=== PATIENT | female | born 1930 | race Caucasian/White ===

== ENCOUNTER 2018-09-25 11:34 | Inpatient (IN) ==
--- NOTE | 2018-09-25 11:56 | ED ---
HPI General Chief complaint: Neuro Symptoms/Deficit Stated complaint: Neuro Time Seen by Provider: 09/25/18 11:42 Source: patient and family Mode of arrival: ambulatory Limitations: no limitations History of Present Illness HPI narrative: 88-year-old female last night was complained to her family about a headache around her right eye. This morning she was supposed to go get her hair done and when she did not show up her son went to check on her and found her in the driveway on her knees having difficulty getting up. They did not find any madrid on her and when they helped get her up she was not complaining of anything specific. When they went inside they found that she still had water running which is not like her. They state that she has used inhalers intermittently but they do not know that she has any specific lung issues. Patient denies active complaints currently but is a poor historian. Related Data Home Medications Medication Instructions Recorded Confirmed amlodipine 5 mg PO DAILY 09/25/18 09/25/18 ezetimibe 10 mg PO DAILY 09/25/18 09/25/18 furosemide 20 mg PO DAILY 09/25/18 09/25/18 levothyroxine 100 mcg PO DAILY 09/25/18 09/25/18 lisinopril 10 mg PO DAILY 09/25/18 09/25/18 losartan 100 mg PO DAILY 09/25/18 09/25/18 metoprolol succinate 50 mg PO DAILY 09/25/18 09/25/18 oxybutynin chloride 5 mg PO TID 09/25/18 09/25/18 ranitidine HCl 150 mg PO DAILY 09/25/18 09/25/18 Allergies Allergy/AdvReac Type Severity Reaction Status Date / Time No Known Allergies Allergy Unknown Uncoded 05/09/13 11:34 Review of Systems ROS: all other systems reviewed are negative [facility] Medical History Medical History Hypertension (Acute) Social History Social History Substance History: No History of Abuse Second Hand Smoke Exposure: No Smoking Status: Never smoker How Often Do You Have a Drink Containing Alcohol: 2 to 4 times a month Recent Travel in [facility] within the Last 8 Weeks: No Recent Out of Country Travel within the Last 8 Weeks: No Immunization History Tetanus Immunization: Unsure Exam Narrative Exam Narrative: GENERAL: 88 y/o female in no apparent distress SKIN: Focused skin assessment warm/dry. HEAD: Atraumatic. Normocephalic. EYES: Pupils equal and round. No scleral icterus. No injection or drainage. ENT: No nasal bleeding or discharge. Mucous membranes pink and moist. NECK: Trachea midline. CARDIOVASCULAR: Regular rate and rhythm. RESPIRATORY: No accessory muscle use. Clear to auscultation. Breath sounds equal bilaterally. GASTROINTESTINAL: Abdomen soft, non-tender, nondistended. MUSCULOSKELETAL: No obvious deformities. No clubbing. No cyanosis. NEUROLOGICAL: Awake. Motor grossly within normal limits. Normal speech. No pronator drift, no facial droop, equal creative writer strength bilaterally Course Reevaluation(s) Reevaluation #1: Patient and family updated, given Lasix, agrees to admission Consultations Consultation #1: dr villalta agrees to admit Initial Documented Vital Signs Temperature 97.8 F 09/25/18 11:36 Pulse Rate 68 09/25/18 11:36 Respiratory Rate 15 09/25/18 11:36 Blood Pressure 156/73 H 09/25/18 11:36 Pulse Oximetry 88 L 09/25/18 11:36 Last Documented Vital Signs Temperature 97.8 F 09/25/18 11:36 Pulse Rate 60 09/25/18 15:21 Respiratory Rate 18 09/25/18 15:21 Blood Pressure 178/74 H 09/25/18 15:21 Pulse Oximetry 95 09/25/18 15:21 Medical Decision Making [facility] Narrative Medical decision making narrative: Will check blood work, imaging and reevaluate Medical Screen Exam Complete: Yes Emergency Medical Condition: Yes Differential Diagnosis Differential Diagnosis: PE, pneumonia, pneumothorax, COPD, anemia, renal failure Lab Data Lab results reviewed: Yes I reviewed the patient's lab results. Result diagrams: 09/25/18 11:52 09/25/18 11:52 Lab Results 09/25/18 09/25/18 09/25/18 Range/Units 11:47 11:52 11:52 WBC 8.5 (4.0-11.0) th/mm3 RBC 4.96 (4.00-5.30) mil/mm3 Hgb 15.4 H (11.6-15.3) gm/dL Hct 45.0 (35.0-46.0) % MCV 90.7 (80.0-100.0) fL MCH 31.0 (27.0-34.0) pg MCHC 34.2 (32.0-36.0) % RDW 15.2 (11.6-17.2) % Plt Count 291 (150-450) th/mm3 MPV 7.9 (7.0-11.0) fL Neut % (Auto) 76.7 H (16.0-70.0) % Lymph % (Auto) 15.7 (9.0-44.0) % Coal % (Auto) 6.3 (0.0-8.0) % Eos % (Auto) 0.9 (0.0-4.0) % Baso % (Auto) 0.4 (0.0-2.0) % Neut # (Auto) 6.5 (1.8-7.7) th/mm3 Lymph # (Auto) 1.3 (1.0-4.8) th/mm3 Coal # (Auto) 0.5 (0.0-0.9) th/mm3 Eos # (Auto) 0.1 (0.0-0.4) th/mm3 Baso # (Auto) 0.0 (0.0-0.2) th/mm3 WBC Differential . Differential Comment Auto diff final PT (9.8-11.6) sec INR Ratio APTT (23.4-31.7) sec Sodium 134 L (136-145) meq/L Potassium 3.4 L (3.5-5.1) meq/L Chloride 99 (98-107) meq/L Carbon Dioxide 22.6 (21.0-32.0) meq/L Anion Gap 12 (5-15) meq/L BUN 20 H (7-18) mg/dL Creatinine 1.32 H (0.50-1.00) mg/dL Estimated GFR 38 L (>89) mL/min POC Glucose 130 H (68-110) mg/dl Random Glucose 124 H (74-106) mg/dL Calcium 9.5 (8.5-10.1) mg/dL Magnesium (1.5-2.5) mg/dL Total Bilirubin 2.1 H (0.2-1.0) mg/dL AST 18 (15-37) U/L ALT 23 (10-53) U/L Alkaline Phosphatase 100 (45-117) U/L Total Creatine Kinase 76 (26-192) U/L Troponin I Less than 0.02 L (0.02-0.05) ng/mL B-Natriuretic Peptide (0-100) pg/mL Total Protein 9.7 H (6.4-8.2) g/dL Albumin 3.8 (3.4-5.0) g/dL Urine Color (Yellw/Straw) Urine Clarity (Clear) Urine pH (5.0-8.5) Ur Specific [place] (1.002-1.035) Urine Protein (Neg-Trace) mg/dL Urine Glucose (UA) (Negative) mg/dL Urine Ketones (Negative) mg/dL Urine Occult Blood (Negative) Urine Nitrate (Negative) Urine Bilirubin (Negative) Urine Urobilinogen (Less than 2) mg/dL Ur Leukocyte Esterase (Negative) Urine RBC (0-3) /hpf Urine WBC (0-5) /hpf Hyaline Casts (0-3) /lpf Urine Mucus (Occasional) /lpf Micro UA Comment Ur Microscopic Review Urine Culture Comments 09/25/18 09/25/18 09/25/18 Range/Units 11:52 11:52 11:52 WBC (4.0-11.0) th/mm3 RBC (4.00-5.30) mil/mm3 Hgb (11.6-15.3) gm/dL Hct (35.0-46.0) % MCV (80.0-100.0) fL MCH (27.0-34.0) pg MCHC (32.0-36.0) % RDW (11.6-17.2) % Plt Count (150-450) th/mm3 MPV (7.0-11.0) fL Neut % (Auto) (16.0-70.0) % Lymph % (Auto) (9.0-44.0) % Coal % (Auto) (0.0-8.0) % Eos % (Auto) (0.0-4.0) % Baso % (Auto) (0.0-2.0) % Neut # (Auto) (1.8-7.7) th/mm3 Lymph # (Auto) (1.0-4.8) th/mm3 Coal # (Auto) (0.0-0.9) th/mm3 Eos # (Auto) (0.0-0.4) th/mm3 Baso # (Auto) (0.0-0.2) th/mm3 WBC Differential Differential Comment PT 10.4 (9.8-11.6) sec INR 1.0 Ratio APTT 31.4 (23.4-31.7) sec Sodium (136-145) meq/L Potassium (3.5-5.1) meq/L Chloride (98-107) meq/L Carbon Dioxide (21.0-32.0) meq/L Anion Gap (5-15) meq/L BUN (7-18) mg/dL Creatinine (0.50-1.00) mg/dL Estimated GFR (>89) mL/min POC Glucose (68-110) mg/dl Random Glucose (74-106) mg/dL Calcium (8.5-10.1) mg/dL Magnesium 2.3 (1.5-2.5) mg/dL Total Bilirubin (0.2-1.0) mg/dL AST (15-37) U/L ALT (10-53) U/L Alkaline Phosphatase (45-117) U/L Total Creatine Kinase (26-192) U/L Troponin I (0.02-0.05) ng/mL B-Natriuretic Peptide 425 H (0-100) pg/mL Total Protein (6.4-8.2) g/dL Albumin (3.4-5.0) g/dL Urine Color (Yellw/Straw) Urine Clarity (Clear) Urine pH (5.0-8.5) Ur Specific [place] (1.002-1.035) Urine Protein (Neg-Trace) mg/dL Urine Glucose (UA) (Negative) mg/dL Urine Ketones (Negative) mg/dL Urine Occult Blood (Negative) Urine Nitrate (Negative) Urine Bilirubin (Negative) Urine Urobilinogen (Less than 2) mg/dL Ur Leukocyte Esterase (Negative) Urine RBC (0-3) /hpf Urine WBC (0-5) /hpf Hyaline Casts (0-3) /lpf Urine Mucus (Occasional) /lpf Micro UA Comment Ur Microscopic Review Urine Culture Comments 09/25/18 Range/Units 12:19 WBC (4.0-11.0) th/mm3 RBC (4.00-5.30) mil/mm3 Hgb (11.6-15.3) gm/dL Hct (35.0-46.0) % MCV (80.0-100.0) fL MCH (27.0-34.0) pg MCHC (32.0-36.0) % RDW (11.6-17.2) % Plt Count (150-450) th/mm3 MPV (7.0-11.0) fL Neut % (Auto) (16.0-70.0) % Lymph % (Auto) (9.0-44.0) % Coal % (Auto) (0.0-8.0) % Eos % (Auto) (0.0-4.0) % Baso % (Auto) (0.0-2.0) % Neut # (Auto) (1.8-7.7) th/mm3 Lymph # (Auto) (1.0-4.8) th/mm3 Coal # (Auto) (0.0-0.9) th/mm3 Eos # (Auto) (0.0-0.4) th/mm3 Baso # (Auto) (0.0-0.2) th/mm3 WBC Differential Differential Comment PT (9.8-11.6) sec INR Ratio APTT (23.4-31.7) sec Sodium (136-145) meq/L Potassium (3.5-5.1) meq/L Chloride (98-107) meq/L Carbon Dioxide (21.0-32.0) meq/L Anion Gap (5-15) meq/L BUN (7-18) mg/dL Creatinine (0.50-1.00) mg/dL Estimated GFR (>89) mL/min POC Glucose (68-110) mg/dl Random Glucose (74-106) mg/dL Calcium (8.5-10.1) mg/dL Magnesium (1.5-2.5) mg/dL Total Bilirubin (0.2-1.0) mg/dL AST (15-37) U/L ALT (10-53) U/L Alkaline Phosphatase (45-117) U/L Total Creatine Kinase (26-192) U/L Troponin I (0.02-0.05) ng/mL B-Natriuretic Peptide (0-100) pg/mL Total Protein (6.4-8.2) g/dL Albumin (3.4-5.0) g/dL Urine Color Yellow (Yellw/Straw) Urine Clarity Hazy H (Clear) Urine pH 5.0 (5.0-8.5) Ur Specific [place] 1.018 (1.002-1.035) Urine Protein 100 H (Neg-Trace) mg/dL Urine Glucose (UA) Negative (Negative) mg/dL Urine Ketones Negative (Negative) mg/dL Urine Occult Blood Negative (Negative) Urine Nitrate Negative (Negative) Urine Bilirubin Negative (Negative) Urine Urobilinogen Less than 2 (Less than 2) mg/dL Ur Leukocyte Esterase Negative (Negative) Urine RBC Less than 1 (0-3) /hpf Urine WBC 1 (0-5) /hpf Hyaline Casts 14 (0-3) /lpf Urine Mucus Few H (Occasional) /lpf Micro UA Comment Culture not ind Ur Microscopic Review Not Reportable Urine Culture Comments Culture not ind Imaging Data Attestation: I personally reviewed and interpreted this imaging study as follows : Radiologist's impression: Chest X-Ray 09/25/18 11:50 CONCLUSION: Mild failure. Head CT 09/25/18 11:50 CONCLUSION: 1. No acute intracranial abnormality demonstrated. 2. Chronic white matter changes. . Chest CTA 09/25/18 11:51 CONCLUSION: 1. No pulmonary embolus. 2. CT findings suggests mild congestive heart failure in the proper clinical setting. Also probably some tricuspid regurgitation. 3. Coronary artery calcification. 4. Upper limits of normal to mildly enlarged mediastinal and hilar lymph nodes are slightly more prominent than in November,. Discharge Plan Discharge Disposition Patient Disposition: 30 Still Patient Discharge Details Diagnosis: Hypoxia, CHF (congestive heart failure) Physicians Team ED Provider: Tawnya Jefferson Primary Care Provider: Victorino Gay Attending Provider: Jose Villalta Discharge Interventions Interventions: Vital Signs Last Done: 09/25/18 15:21 Status ED Status: Admitted Observation Patient
[2018-09-25 12:15] LABS: Baso % (Auto) 0.4 % (0.0-2.0); Eos # (Auto) 0.1 th/mm3 (0.0-0.4); Eos % (Auto) 0.9 % (0.0-4.0); Hemoglobin 15.4 gm/dL (11.6-15.3); Lymph # (Auto) 1.3 th/mm3 (1.0-4.8); Lymph % (Auto) 15.7 % (9.0-44.0); Mean Corpuscular HGB Conc 34.2 % (32.0-36.0); Mean Corpuscular Volume 90.7 fL (80.0-100.0); Mean Platelet Volume 7.9 fL (7.0-11.0); Mono # (Auto) 0.5 th/mm3 (0.0-0.9); Mono % (Auto) 6.3 % (0.0-8.0); Neut # (Auto) 6.5 th/mm3 (1.8-7.7); Neut % (Auto) 76.7 % (16.0-70.0); Platelet Count 291 th/mm3 (150-450); Red Blood Count 4.96 mil/mm3 (4.00-5.30); Red Cell Distribution Width 15.2 % (11.6-17.2); White Blood Count 8.5 th/mm3 (4.0-11.0)
[2018-09-25 12:24] LABS: Activated Partial Thrombo Time 31.4 sec (23.4-31.7); Prothrombin Time 10.4 sec (9.8-11.6)
[2018-09-25 12:31] LABS: Bilirubin,Urine Negative (Negative); Clarity,Urine Hazy (Clear); Color,Urine Yellow (Yellw/Straw); Glucose,Urine (UA) Negative (Negative); Hyaline Casts,Urine 14 /lpf (0-3); Leukocyte Esterase,Urine Negative (Negative); Mucus,Urine Few /lpf (Occasional); Nitrite,Urine Negative (Negative); Specific Gravity,Urine 1.018 (1.002-1.035)
--- NOTE | 2018-09-25 12:35 | XR ---
EXAM DATE: 09/25/2018 12:32 PM EST AGE/SEX: 88 years / Female INDICATIONS: Short of breath. CLINICAL DATA: This is the patient's initial encounter. Patient reports that signs and symptoms have been present for 1 day and indicates a pain score of 6/10. MEDICAL/SURGICAL HISTORY: None. None. COMPARISON: . FINDINGS: Basilar predominant bilateral infiltrates are present with probable small pleural effusions. There is mild cardiomegaly. No pneumothorax. Old granulomatous findings are again noted. CONCLUSION: Mild failure. Electronically signed by: Reji Osullivan MD 09/25/2018 12:34 PM EST
[2018-09-25 12:39] LABS: Alanine Aminotransferase 23 U/L (10-53); Albumin 3.8 g/dL (3.4-5.0); Anion Gap 12 meq/L (5-15); Aspartate Aminotransferase 18 U/L (15-37); Blood Urea Nitrogen 20 mg/dL (7-18); Calcium 9.5 mg/dL (8.5-10.1); Carbon Dioxide 22.6 meq/L (21.0-32.0); Chloride 99 meq/L (98-107); Glomerular Filtration Rate 38 mL/min (>89); Glucose,Random 124 mg/dL (74-106); Potassium 3.4 meq/L (3.5-5.1); Sodium 134 meq/L (136-145)
[2018-09-25 12:42] LABS: Alkaline Phosphatase 100 U/L (45-117); Total Protein 9.7 g/dL (6.4-8.2)
[2018-09-25 12:51] LABS: Creatine Kinase 76 U/L (26-192)
--- NOTE | 2018-09-25 14:18 | ECG ---
Date Performed: 09/25/2018 Time Performed: 11:53:06 PTAGE: 88 years EKG: Sinus rhythm PROLONGED QT INTERVAL ABNORMAL ECG No significant change from prior electrocardiogram. PREVIOUS TRACING : 09/08/2005 12.32 DOCTOR: Jono Lisa Interpretating Date/Time 09/25/2018 14:17:29
--- NOTE | 2018-09-25 16:18 | CT ---
EXAM DATE: 09/25/2018 3:56 PM EST AGE/SEX: 88 years / Female INDICATIONS: Altered mental status. CLINICAL DATA: This is the patient's initial encounter. Patient reports that signs and symptoms have been present for 1 day and indicates a pain score of 0/10. MEDICAL/SURGICAL HISTORY: Hypertension. None. RADIATION DOSE: 56.77 CTDI (mGy) COMPARISON: No prior exams available for comparison. TECHNIQUE: CT of the head without contrast. Using automated exposure control and adjustment of the mA and/or kV according to patient size, radiation dose was kept as low as reasonably achievable to ob tain optimal diagnostic quality images. DICOM format image data is available electronically for revi ew and comparison. FINDINGS: Cerebrum: The ventricles are normal for age. No evidence of midline shift, mass lesion, hemorrhage or acute infarction. No extraaxial fluid collections are seen. There is chronic appearing low-attenu ation in the periventricular white matter Posterior Fossa: The cerebellum and brainstem are intact. The 4th ventricle is midline. The cerebe llopontine angle is unremarkable. Extracranial: The visualized portion of the orbits is intact. Skull: The calvaria is intact. No evidence of skull fracture. CONCLUSION: 1. No acute intracranial abnormality demonstrated. 2. Chronic white matter changes. . Electronically signed by: Reji Osullivan MD 09/25/2018 4:16 PM EST
--- NOTE | 2018-09-25 16:24 | CT ---
EXAM DATE: 09/25/2018 4:00 PM EST AGE/SEX: 88 years / Female INDICATIONS: Shortness of breath. CLINICAL DATA: This is the patient's initial encounter. Patient reports that signs and symptoms have been present for 1 day and indicates a pain score of 0/10. MEDICAL/SURGICAL HISTORY: Hypertension. None. RADIATION DOSE: 10.49 CTDI (mGy) COMPARISON: POI, CT CHEST W/O CONTRAST, 12/09/2017. . TECHNIQUE: Volumetric scanning was performed using a multi-row detector CT scanner during bolus infu vika of 50 ml Visipaque 320 (iodixanol) nonionic water-soluble contrast as a single exam dose. The d simon was post processed with a variety of visualization algorithms including full volume maximum inten sity projection and sliding thin slab reformation. Using automated exposure control and adjustment o f the mA and/or kV according to patient size, radiation dose was kept as low as reasonably achievable to obtain optimal diagnostic quality images. DICOM format image data is available electronically fo r review and comparison. FINDINGS: No pulmonary embolus. Mild cardiomegaly present, mostly left ventricular and left atrial enlargement. Coronary artery calcification present. Intravenous contrast partially refluxes down the IVC and into the hepatic veins. Mild diffuse thickening of the interlobular septi groundglass alveolar opacities of both lungs. There are tiny bilateral effusions. No pneumothorax. There is a small hiatal hernia. Mediastinal lymph nodes are present measuring up to 18 mm in size and slightly more prominent in the interim. There are multiple bilateral hilar lymph nodes that measure up to 1 cm in size that also viktoriya ear more conspicuous. Small calcified the central and right hilar lymph nodes and a subpleural calcified granuloma of the r ight lower lobe are again noted. CONCLUSION: 1. No pulmonary embolus. 2. CT findings suggests mild congestive heart failure in the proper clinical setting. Also probably some tricuspid regurgitation. 3. Coronary artery calcification. 4. Upper limits of normal to mildly enlarged mediastinal and hilar lymph nodes are slightly more pro minent than in November,. Electronically signed by: Reji Osullivan MD 09/25/2018 4:22 PM EST
[2018-09-25] MEDS ORDERED: Acetaminophen 325 MG Tablet PO PRN (16:37)
--- NOTE | 2018-09-25 16:45 | P.HPIM ---
History of Present Illness Primary Care Physician: Victorino Gay MD Chief Complaint: Patient found confused and brought in by family History of Present Illness: This is a 88 year old female patient with a past medical history which includes HTN, hyperlipidemia, GERD, CKD stage 3 and hypothyroidism. Patient was brought to the ER today after she did not show up to her hair appointment. When her son went to check on her he found her in the driveway on her knees having difficulty getting up. Family present also report that the patient had her cloths on backward and had left the water running in her house. They did not find any madrid on her and when they helped get her up she was not complaining of anything specific. Patient denies active complaints currently but is a poor historian. Family at bedside reports that patient is usually very sharp and does not have any confusion or memory problems Per ER MD pulse oxygen saturation was in the 80s on arrival to the ER. Patient denies chest pain, N/V/D/C, fevers, chills or dysuria. Patient did recently start oxybutynin for urinary leakage CXR Mild failure BNP 425 PMH: HTN, hyperlipidemia, GERD, CKD stage 3 and hypothyroidism PSxH: polypectomy appendectomy liver bx R eye cataract Sx colonoscopy FMH: reviewed and noncontributory Social history: retired ETOH use occasionally denies tobacco use now or in the past Medications and Allergies Allergies Allergy/AdvReac Type Severity Reaction Status Date / Time No Known Allergies Allergy Unknown Uncoded 05/09/13 11:34 Home Medications Medication Instructions Recorded Confirmed Type amlodipine 5 mg PO DAILY 09/25/18 09/25/18 History ezetimibe 10 mg PO DAILY 09/25/18 09/25/18 History furosemide 20 mg PO DAILY 09/25/18 09/25/18 History levothyroxine 100 mcg PO DAILY 09/25/18 09/25/18 History losartan 100 mg PO DAILY 09/25/18 09/25/18 History metoprolol tartrate 50 mg PO BID 09/25/18 09/25/18 History oxybutynin chloride 5 mg PO DAILY 09/25/18 09/25/18 History ranitidine HCl 150 mg PO DAILY 09/25/18 09/25/18 History Active Medications: Active Medications Acetaminophen (Tylenol) 650 mg PO Q4H PRN PRN Reason: Temp > 100.4 Al Hydroxide/Mg Hydroxide (Milk Of Baudilio Dyson) 30 ml PO Q12H PRN PRN Reason: Mild Constipation Furosemide (Lasix Inj) 20 mg IV.PUSH BID@0900,1800 OLYA Ondansetron HCl (Zofran Inj) 4 mg IV.PUSH Q6H PRN PRN Reason: NAUSEA OR VOMITING Senna/Docusate Sodium (Olivia-Colace) 1 tab PO BID [facility] Physical Exam Vital signs: Last Vital Signs Temp 97.8 F 09/25/18 11:36 Pulse 60 09/25/18 15:21 Resp 18 09/25/18 15:21 BP 178/74 H 09/25/18 15:21 Pulse Ox 95 09/25/18 15:21 Narrative: GENERAL: This is a well-nourished, well-developed patient, in no apparent distress. CARDIOVASCULAR: Regular rate and rhythm RESPIRATORY: Diminished bilateral bases GASTROINTESTINAL: Abdomen soft, non-tender, nondistended. Normal active bowel sounds MUSCULOSKELETAL: Extremities without clubbing, cyanosis, or edema. NEURO: Alert & Oriented, poor historian. Moves all ext x4 equally Results Labs CBC & Chem 7: 09/25/18 11:52 09/25/18 11:52 Caprini VTE Risk Assessment Caprini VTE Risk Assessment: Moderate/High Risk (score >= 2) Caprini Risk Assessment Model: Point Value = 1 Point Value = 2 Point Value = 3 Point Value = 5 Age 41-60 Minor surgery BMI > 25 kg/m2 Swollen legs Varicose veins or History of unexplained or recurrent spontaneous Oral contraceptives or hormone replacement Sepsis (< 1 month) Serious lung disease, including pneumonia (< 1 month) Abnormal pulmonary function Acute myocardial infarction Congestive heart failure (< 1 month) History of inflammatory bowel disease Medical patient at bed rest Age 61-74 Arthroscopic surgery Major open surgery (> 45 min) Laparoscopic surgery (> 45 min) Malignancy Confined to bed (> 72 hours) Immobilizing plaster cast Central venous access Age >= 75 History of VTE Family history of VTE Factor V Leiden Prothrombin [id number] Lupus anticoagulant Anticardiolipin antibodies Elevated serum homocysteine Heparin-induced thrombocytopenia Other congenital or acquired thrombophilia Stroke (< 1 month) Elective arthroplasty Hip, pelvis, or leg fracture Acute spinal cord injury (< 1 month) Prophylaxis Regimen: Total Risk Factor Score Risk Level Prophylaxis Regimen 0-1 Low Early ambulation 2 Moderate Order ONE of the following: *Sequential Compression Device (SCD) *Heparin 5000 units SQ BID 3-4 Higher Order ONE of the following medications: *Heparin 5000 units SQ TID *Enoxaparin/Lovenox 40 mg SQ daily (WT < 150 kg, CrCl > 30 mL/min) *Enoxaparin/Lovenox 30 mg SQ daily (WT < 150 kg, CrCl > 10-29 mL/min) *Enoxaparin/Lovenox 30 mg SQ BID (WT < 150 kg, CrCl > 30 mL/min) AND/OR *Sequential Compression Device (SCD) 5 or more Highest Order ONE of the following medications: *Heparin 5000 units SQ TID (Preferred with Epidurals) *Enoxaparin/Lovenox 40 mg SQ daily (WT < 150 kg, CrCl > 30 mL/min) *Enoxaparin/Lovenox 30 mg SQ daily (WT < 150 kg, CrCl > 10-29 mL/min) *Enoxaparin/Lovenox 30 mg SQ BID (WT < 150 kg, CrCl > 30 mL/min) AND *Sequential Compression Device (SCD) Assessment and Plan Plan This is a 88 year old female patient with a past medical history which includes HTN, hyperlipidemia, GERD, CKD stage 3 and hypothyroidism. Patient was brought to the ER today after she did not show up to her hair appointment. When her son went to check on her he found her in the driveway on her knees having difficulty getting up. They did not find any madrid on her and when they helped get her up she was not complaining of anything specific. When they went inside they found that she still had water running which is not like her. They state that she has used inhalers intermittently but they do not know that she has any specific lung issues. Patient denies active complaints currently but is a poor historian. Per ER MD pulse oxygen saturation was CXR Mild failure with BNP 425 Hypoxia ?secondary to CHF exacerbation Chest X-Ray 09/25/[address] 09/25/18 1. No acute intracranial abnormality demonstrated. 2. Chronic white matter changes. Chest CTA 09/25/18 1. No pulmonary embolus. 2. CT findings suggests mild congestive heart failure in the proper clinical setting. Also probably some tricuspid regurgitation. 3. Coronary artery calcification. 4. Upper limits of normal to mildly enlarged mediastinal and hilar lymph nodes are slightly more prominent than in November, nonspecific. Echocardiogram Lasix 20 mg IV BID recheck BMp and BNP in AM Confusion ? secondary to hypoxia vs dementia Patient found by her son with her clothes on backward and had left the water running UA obtained neg protein, neg nitrates, neg leukocyte esterase no culture indicated check ammonia, TSH, free T4, B12, folate, RPR If confusion persist consider MRI tomorrow HTN Continue patient's home Metoprolol 50 mg PO BID and amlodipine 5 mg PO daily Hyperlipidemia Continue patient's home ezetimibe GERD continue patient's home ranitidine CKD stage 3 monitor renal function Hypothyroidism Continue patient home levothyroxine check TSH and free T4 DVT prophylaxis with SCDs
[2018-09-25] MEDS: amLODIPine 5 MG Tablet PO SCH (17:32)
[2018-09-25] MEDS: Ezetimibe 10 MG Tablet PO SCH (17:33)
[2018-09-25 18:15] LABS: Free T4 (Free Thyroxine) 1.65 ng/dL (0.76-1.46)
[2018-09-25] MEDS: Senna/Docusate Sodium 8.6/50 MG Tablet PO SCH (21:10)
[2018-09-25] MEDS: Metoprolol Tartrate 50 MG Tablet PO SCH (21:10)
[2018-09-25] MEDS: Famotidine Susp 40 MG/5ML 50 ML Bottle PO SCH (22:11)
[2018-09-26 05:19] LABS: Calcium 8.4 mg/dL (8.5-10.1); Carbon Dioxide 25.2 meq/L (21.0-32.0)
[2018-09-26] MEDS: Levothyroxine 100 MCG Tablet PO SCH (05:29)
--- NOTE | 2018-09-26 09:24 | XR ---
EXAM DATE: 09/26/2018 9:19 AM EST AGE/SEX: 88 years / Female INDICATIONS: . Short of breath. CLINICAL DATA: This is the patient's subsequent encounter. Patient reports that signs and symptoms h ave been present for 3 days and indicates a pain score of 6/10. MEDICAL/SURGICAL HISTORY: Congestive heart failure. None. COMPARISON: [facility] [place] PUL[place]ARY W CONTRAST W 3D, 09/25/2018. . FINDINGS: Examination demonstrates interstitial prominence, calcified right hilar lymph node and a calcified gr anuloma in the right midlung. There is no consolidation. Cardiomegaly is present. Osseous structures are intact. CONCLUSION: Mild interstitial prominence is now seen. Electronically signed by: Anirudh Stone MD 09/26/2018 9:23 AM EST
[2018-09-26] MEDS: Senna/Docusate Sodium 8.6/50 MG Tablet PO SCH ×2 (10:03→21:11)
[2018-09-26] MEDS: amLODIPine 5 MG Tablet PO SCH (10:04)
[2018-09-26] MEDS: Ezetimibe 10 MG Tablet PO SCH (10:04)
[2018-09-26] MEDS: Metoprolol Tartrate 50 MG Tablet PO SCH ×2 (10:04→21:11)
--- NOTE | 2018-09-26 10:24 | ECG ---
Date Performed: 09/25/2018 Time Performed: 21:57:07 PTAGE: 88 years EKG: Baseline artifact present Sinus rhythm NONSPECIFIC T-WAVE ABNORMALITY BORDERLINE ECG No significant change from prior electrocardiogram. PREVIOUS TRACING : 09/25/2018 11.53 DOCTOR: Jono Lisa Interpretating Date/Time 09/26/2018 10:23:13
[2018-09-26] MEDS: Famotidine 20 MG Tablet PO SCH ×2 (11:16→21:11)
--- NOTE | 2018-09-26 11:31 | ECHRPT ---
Indication: SYNCOPE CONCLUSIONS Normal left ventricular size. Wall thickness is normal. The left ventricular systolic function is low normal with an estimated ejection fraction in the rang e of 50- 55%. [id number] mitral valve regurgitation. The estimated pulmonary arterial pressure is 33 mmHg. There is mild tricuspid valve regurgitation. Trivial pericardial effusion. BP: / HR: Rhythm: MEASUREMENTS (Male / Female) Normal Values Technical Quality: 2D ECHO LV Diastolic Diameter PLAX 3.8 cm 4.2 - 5.9 / 3.9 - 5.3 cm LV Systolic Diameter PLAX 2.2 cm IVS Diastolic Thickness 1.1 cm 0.6 - 1.0 / 0.6 - 0.9 cm LVPW Diastolic Thickness 1.2 cm 0.6 - 1.0 / 0.6 - 0.9 cm LV Relative Wall Thickness 0.6 RV Internal Dim ED PLAX 2.8 cm LVOT Diameter 1.8 cm Aortic Root Diameter 2.4 cm LA Systolic Diameter LX 2.8 cm 3.0 - 4.0 / 2.7 - 3.8 cm LV Ejection Fraction MOD BP 45.1 % >= 55 % LV Ejection Fraction MOD 4C 51.7 % LV Ejection Fraction 4C AL 52.4 % LV Ejection Fraction MOD 2C 40.8 % LV Ejection Fraction 2C AL 42.2 % M-MODE Aortic Root Diameter MM 3.3 cm LA Systolic Diameter MM 4.3 cm LA Ao Ratio MM 1.3 AV Cusp Separation MM 2.3 cm DOPPLER AV Peak Velocity 138.0 cm/s AV Peak Gradient 7.6 mmHg Mitral E Point Velocity 105.0 cm/s Mitral A Point Velocity 48.4 cm/s Mitral E to A Ratio 2.2 LV E' Lateral Velocity 4.8 cm/s Mitral E to LV E' Lateral Ratio 22.1 LV E' Septal Velocity 3.3 cm/s Mitral E to LV E' Septal Ratio 31.4 TR Peak Velocity 240.0 cm/s TR Peak Gradient 23.0 mmHg Right Atrial Pressure 10.0 mmHg Pulmonary Artery Systolic Pressu 33.0 mmHg Right Ventricular Systolic Press 33.0 mmHg PV Peak Velocity 79.0 cm/s PV Peak Gradient 2.5 mmHg FINDINGS LEFT VENTRICLE Normal left ventricular size. Wall thickness is normal. The left ventricular systolic function is low normal with an estimated ejection fraction in the rang e of 50- 55%. RIGHT VENTRICLE Normal right ventricular size and systolic function. LEFT ATRIUM The left atrial size is normal. RIGHT ATRIUM The right atrial size is normal. ATRIAL SEPTUM Normal atrial septal thickness without atrial level shunting by limited color doppler interrogation. AORTA The aortic root and proximal ascending aorta are normal in size on limited imaging. MITRAL VALVE Kogvj-[id number]-dxsv mitral valve regurgitation. AORTIC VALVE Trileaflet aortic valve. No aortic valve stenosis or regurgitation. TRICUSPID VALVE The estimated pulmonary arterial pressure is 33 mmHg. There is mild tricuspid valve regurgitation. PULMONARY VALVE No pulmonary valve regurgitation or stenosis. VESSELS The inferior vena cava is normal in size. PERICARDIUM Trivial pericardial effusion. Jose Rosenberg MD, FACC (Electronically Signed) Final Date:26 September 2018 11:30
--- NOTE | 2018-09-26 14:06 | P.PNIM ---
Subjective Interval history: Follow up hypoxia, CHF exacerbation and confusion Patient seen with Dr. Villalta, multiple family members present Family members concerned they feel that patient is becoming more confused - patient was unable to recognize one of the family members earlier today Physical Exam Vital signs: Last Vital Signs Temp 97.4 F L 09/26/18 12:00 Pulse 58 L 09/26/18 12:00 Resp 14 09/26/18 12:00 BP 146/75 H 09/26/18 12:00 Pulse Ox 92 L 09/26/18 12:00 Narrative: GENERAL: This is a well-nourished, well-developed patient, in no apparent distress. CARDIOVASCULAR: Regular rate and rhythm RESPIRATORY: clear through out GASTROINTESTINAL: Abdomen soft, non-tender, nondistended. Normal active bowel sounds MUSCULOSKELETAL: Extremities without clubbing, cyanosis, or edema. NEURO: A&O x 3. moves all four extremities equally. Able to follow commands and conversationally appropriate. Results Labs CBC & Chem 7: 09/27/18 04:30 09/27/18 04:30 Assessment and Plan Plan This is a 88 year old female patient with a past medical history which includes HTN, hyperlipidemia, GERD, CKD stage 3 and hypothyroidism. Patient was brought to the ER today after she did not show up to her hair appointment. When her son went to check on her he found her in the driveway on her knees having difficulty getting up. They did not find any madrid on her and when they helped get her up she was not complaining of anything specific. When they went inside they found that she still had water running which is not like her. They state that she has used inhalers intermittently but they do not know that she has any specific lung issues. Patient denies active complaints currently but is a poor historian. Per ER MD pulse oxygen saturation was CXR Mild failure with BNP 425 Hypoxia ?secondary to diastolic CHF exacerbation Chest X-Ray 09/25/[address] 09/25/18 1. No acute intracranial abnormality demonstrated. 2. Chronic white matter changes. Chest CTA 09/25/18 1. No pulmonary embolus. 2. CT findings suggests mild congestive heart failure in the proper clinical setting. Also probably some tricuspid regurgitation. 3. Coronary artery calcification. 4. Upper limits of normal to mildly enlarged mediastinal and hilar lymph nodes are slightly more prominent than in November, . Echocardiogram: Normal left ventricular size. Wall thickness is normal. The left ventricular systolic function is low normal with an estimated ejection fraction in the range of 50-55%. [id number] mitral valve regurgitation. The estimated pulmonary arterial pressure is 33 mmHg. There is mild tricuspid valve regurgitation. Trivial pericardial effusion Lasix 20 mg IV BID -> transition to Lasix 40 mg PO daily BNP in admission 425 -> (09/26) repeat BNP 354 Daughter at bedside report that she has had SOB for years. Has seen out Confusion ? secondary to hypoxia vs dementia vs TIA vs CVA Patient found by her son with her clothes on backward and had left the water running UA obtained neg protein, neg nitrates, neg leukocyte esterase no culture indicated check ammonia < 10, TSH 4.550, free T4 1.65, B12 > 2000, folate > 20.0, RPR pending MRI head pending US carotids pending consult neurology HTN Continue patient's home Metoprolol 50 mg PO BID and amlodipine 5 mg PO daily Hyperlipidemia Continue patient's home ezetimibe GERD continue patient's home ranitidine CKD stage 3 monitor renal function Hypothyroidism Continue patient home levothyroxine Consult PT -> patient will likely require SNF at time of DC Consult to case management DVT prophylaxis with SCDs Progress Note: Quality VTE Deep Vein Thrombosis/Pulmonary Embolism Present on Admission: No
--- NOTE | 2018-09-26 17:14 | MR ---
EXAM DATE: 09/26/2018 5:08 PM EST AGE/SEX: 88 years / Female INDICATIONS: Altered mental status. CLINICAL DATA: This is the patient's initial encounter. Patient reports that signs and symptoms have been present for 1 day and indicates a pain score of 0/10. MEDICAL/SURGICAL HISTORY: Hypertension. Appendectomy. COMPARISON: No prior exams available for comparison. TECHNIQUE: Multiplanar, multisequence examination of the brain was performed without contrast. FINDINGS: There are multiple small acute lacunar infarcts involving the right periventricular white matter in t he right MCA distribution. These extend into the upper portion of the right basal ganglia. There is n o associated hemorrhage or mass effect identified. No hydrocephalus. There are underlying mild to moderate changes of chronic ischemic demyelinization. CONCLUSION: 1. Multiple small acute lacunar infarcts involving the right periventricular white matter and extend ing into the upper portion of the right basal ganglia without hemorrhage or mass effect. 2. Mild to moderate chronic ischemic changes in the periventricular white matter. Electronically signed by: Brian Mayers MD 09/26/2018 5:12 PM EST
--- NOTE | 2018-09-26 18:25 | US ---
EXAM DATE: 09/26/2018 6:00 PM EST AGE/SEX: 88 years / Female INDICATIONS: Altered mental status. CLINICAL DATA: This is the patient's initial encounter. Patient reports that signs and symptoms have been present for 1 day and indicates a pain score of 0/10. MEDICAL/SURGICAL HISTORY: Hypertension. None. COMPARISON: No prior exams available for comparison. VELOCITY PARAMETERS: ICA/CCA Ratio: Right N/A. , Left 1.2 ICA: Right n/a. cm/sec, Left 83 (mid) cm/sec CCA: Right 82 (prox) cm/sec, Left 70 cm/sec ECA: Right 153 cm/sec, Left 83 cm/sec Vertebral: Right Not visualized. cm/sec absent, Left Not visualized. cm/sec absent FINDINGS: Exam is technically difficult. Calcified plaques seen bilaterally. Flow velocity in the right interna l carotid cannot be adequately assessed. Right and left common carotid velocities are within normal l imits. PSV ratio on the left is 1.2. CONCLUSION: Technically limited exam. Unable to adequately assess the right side. No left carotid stenosis. Electronically signed by: Brian Mayers MD 09/26/2018 6:23 PM EST
--- NOTE | 2018-09-26 19:05 | MB ---
cc: Amadeo Cosby MD, PhD DATE: 09/26/2018 REASON FOR CONSULTATION: Mental status change. HISTORY OF PRESENT ILLNESS: Ms. Carter is an 88-year-old woman who came to the ER today when her son found her in the driveway at the house with trouble getting up. She had been confused, did awkward things such as putting her clothing on backwards, left the water running in the house, which was atypical for her. No focal deficits were identified. Normally has intact mental status. PAST MEDICAL HISTORY: History of hypertension, hyperlipidemia, GERD, stage 3 kidney disease, hypothyroidism. PAST SURGICAL HISTORY: Polypectomy, appendectomy, liver biopsy, right eye cataract surgery, colonoscopy. SOCIAL HISTORY: Drinks alcohol occasionally. Denies tobacco use. NEUROLOGIC EXAMINATION: VITAL SIGNS: Blood pressure is 143/59, pulse is 63, respirations 16, temperature 97.9 degrees. HIGHER CORTICAL FUNCTION: She is alert and oriented x 3. Speech is normal. Cranial nerves intact. MOTOR EXAM: She has got some mild weakness of the left arm and left leg compared with the right, rated at about 4+/5. She has got diminished fine motor skills left hand. Reflexes 2+ symmetric. IMAGING STUDIES: CT of the brain negative. MRI of the brain shows multiple small acute lacunar infarctions in the right periventricular white matter involving the basal ganglia. No hemorrhage is identified. LABORATORY DATA: The white count is 8500, hemoglobin 15.4, hematocrit 45%, platelet count 291,000. PT 10.4, INR 1, aPTT 31.4. Sodium is 137, potassium 3.1, chloride is 101, CO2 25.2, BUN is 21, creatinine 1.08, GFR is 48, glucose 106. B12 greater than 2000. Urinalysis: The pH is 5, specific gravity 1.018. Urine protein 100, WBC 1. IMPRESSION: Right hemisphere stroke. RECOMMENDATIONS: Start aspirin. Also, obtain a carotid ultrasound and echocardiogram, and will measure a lipid panel as well. Amadeo Cosby MD, PhD MASSIMO/dean , 06:34 PM , 06:41 PM
[2018-09-26] MEDS: Aspirin 325 MG Tablet PO SCH (21:11)
[2018-09-27] MEDS: Famotidine Susp 40 MG/5ML 50 ML Bottle PO SCH (00:44)
[2018-09-27 05:20] LABS: Baso % (Auto) 0.5 % (0.0-2.0); Eos # (Auto) 0.2 th/mm3 (0.0-0.4); Eos % (Auto) 2.8 % (0.0-4.0); Hematocrit 40.4 % (35.0-46.0); Hemoglobin 13.6 gm/dL (11.6-15.3); Lymph # (Auto) 2.1 th/mm3 (1.0-4.8); Lymph % (Auto) 24.8 % (9.0-44.0); Mean Corpuscular HGB Conc 33.7 % (32.0-36.0); Mean Corpuscular Hemoglobin 30.7 pg (27.0-34.0); Mean Corpuscular Volume 91.2 fL (80.0-100.0); Mean Platelet Volume 7.5 fL (7.0-11.0); Mono # (Auto) 0.7 th/mm3 (0.0-0.9); Mono % (Auto) 8.6 % (0.0-8.0); Neut # (Auto) 5.3 th/mm3 (1.8-7.7); Neut % (Auto) 63.3 % (16.0-70.0); Platelet Count 264 th/mm3 (150-450); Red Blood Count 4.43 mil/mm3 (4.00-5.30); Red Cell Distribution Width 14.6 % (11.6-17.2); White Blood Count 8.4 th/mm3 (4.0-11.0)
[2018-09-27] MEDS: Levothyroxine 100 MCG Tablet PO SCH (05:44)
[2018-09-27 05:54] LABS: Calcium 8.7 mg/dL (8.5-10.1); Carbon Dioxide 23.4 meq/L (21.0-32.0); Chol/HDL Ratio 3.79 Ratio; HDL Cholesterol 39.3 mg/dL (40.0-60.0); Potassium 4.1 meq/L (3.5-5.1)
[2018-09-27] MEDS: Senna/Docusate Sodium 8.6/50 MG Tablet PO SCH ×2 (09:11→21:21)
[2018-09-27] MEDS: Ezetimibe 10 MG Tablet PO SCH (09:11)
[2018-09-27] MEDS: Furosemide 40 MG Tablet PO SCH (09:12)
[2018-09-27] MEDS: Aspirin 325 MG Tablet PO SCH (09:12)
[2018-09-27] MEDS: Metoprolol Tartrate 50 MG Tablet PO SCH ×2 (09:12→20:37)
[2018-09-27] MEDS: amLODIPine 5 MG Tablet PO SCH (09:12)
[2018-09-27] MEDS: Famotidine 20 MG Tablet PO SCH ×2 (09:12→20:37)
[2018-09-27] MEDS ORDERED: Sodium Chloride 0.9% 2 ML Flush PRN IV.FLUSH (10:51)
--- NOTE | 2018-09-27 13:02 | CT ---
EXAM DATE: 09/27/2018 12:58 PM EST AGE/SEX: 88 years / Female INDICATIONS: Abnormal ultrasound CLINICAL DATA: This is the patient's initial encounter. Patient reports that signs and symptoms have been present for 1 day and indicates a pain score of 0/10. MEDICAL/SURGICAL HISTORY: Hypertension. None. RADIATION DOSE: 26.91 CTDI (mGy) COMPARISON: No prior exams available for comparison. TECHNIQUE: Volumetric scanning was performed using a multirow detector CT scanner during bolus infus ion of 70 ml Omnipaque 350 (iohexol) nonionic water-soluble contrast as a single exam dose. The da ta was postprocessed with a variety of visualization algorithms including full-volume maximum intensi ty projection, multiplanar sliding thin-slab reformation, curved-planar reformation, and surface-rend ering techniques. Using automated exposure control and adjustment of the mA and/or kV according to p atient size, radiation dose was kept as low as reasonably achievable to obtain optimal diagnostic travis lity images. DICOM format image data is available electronically for review and comparison. Percent stenosis is calculated using the diameter of the stenotic region over the diameter of the nor mal distal internal carotid artery. FINDINGS: Aortic arch: There is normal anatomic branching of the great vessels from the arch. The origins of th e great vessels are widely patent. Right carotid: The right common carotid is widely patent. 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 Left carotid: The left common carotid is widely patent. There is mild calcified atherosclerotic plaqu ing at the bifurcation which results in only minimal stenosis in the origin of the left internal vann tid this is estimated to be in the range of 10% by NASCET criteria. The vertebral circulation is widely patent bilaterally. CONCLUSION: 1. 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 2. Minimal stenosis at the origin of the left internal carotid. 3. The vertebral circulation is widely patent bilaterally. Electronically signed by: Juan Carson MD 09/27/2018 1:01 PM EST
--- NOTE | 2018-09-27 17:04 | P.PNIM ---
Subjective Interval history: DRAFT NOTE Physical Exam Vital signs: Last Vital Signs Temp 97.6 F 09/27/18 11:31 Pulse 54 L 09/27/18 11:31 Resp 16 09/27/18 11:31 BP 145/74 H 09/27/18 11:31 Pulse Ox 99 09/27/18 11:31 Narrative: GENERAL: This is a well-nourished, well-developed patient, in no apparent distress. CARDIOVASCULAR: Regular rate and rhythm RESPIRATORY: clear through out GASTROINTESTINAL: Abdomen soft, non-tender, nondistended. Normal active bowel sounds MUSCULOSKELETAL: Extremities without clubbing, cyanosis, or edema. NEURO: A&O x 3. moves all four extremities equally. Able to follow commands and conversationally appropriate. Results Labs CBC & Chem 7: 09/27/18 04:30 09/27/18 04:30 Assessment and Plan Plan This is a 88 year old female patient with a past medical history which includes HTN, hyperlipidemia, GERD, CKD stage 3 and hypothyroidism. Patient was brought to the ER today after she did not show up to her hair appointment. When her son went to check on her he found her in the driveway on her knees having difficulty getting up. They did not find any madrid on her and when they helped get her up she was not complaining of anything specific. When they went inside they found that she still had water running which is not like her. They state that she has used inhalers intermittently but they do not know that she has any specific lung issues. Patient denies active complaints currently but is a poor historian. Per ER MD pulse oxygen saturation was CXR Mild failure with BNP 425 Hypoxia ?secondary to diastolic CHF exacerbation Chest X-Ray 09/25/[address] 09/25/18 1. No acute intracranial abnormality demonstrated. 2. Chronic white matter changes. Chest CTA 09/25/18 1. No pulmonary embolus. 2. CT findings suggests mild congestive heart failure in the proper clinical setting. Also probably some tricuspid regurgitation. 3. Coronary artery calcification. 4. Upper limits of normal to mildly enlarged mediastinal and hilar lymph nodes are slightly more prominent than in November,. Echocardiogram: Normal left ventricular size. Wall thickness is normal. The left ventricular systolic function is low normal with an estimated ejection fraction in the range of 50-55%. [id number] mitral valve regurgitation. The estimated pulmonary arterial pressure is 33 mmHg. There is mild tricuspid valve regurgitation. Trivial pericardial effusion Lasix 20 mg IV BID -> transition to Lasix 40 mg PO daily BNP in admission 425 -> (09/26) repeat BNP 354 Daughter at bedside report that she has had SOB for years. Has seen out Confusion ? secondary to hypoxia vs dementia vs TIA vs CVA Patient found by her son with her clothes on backward and had left the water running UA obtained neg protein, neg nitrates, neg leukocyte esterase no culture indicated check ammonia < 10, TSH 4.550, free T4 1.65, B12 > 2000, folate > 20.0, RPR pending MRI head pending US carotids pending consult neurology HTN Continue patient's home Metoprolol 50 mg PO BID and amlodipine 5 mg PO daily Hyperlipidemia Continue patient's home ezetimibe GERD continue patient's home ranitidine CKD stage 3 monitor renal function Hypothyroidism Continue patient home levothyroxine Consult PT -> patient will likely require SNF at time of DC Consult to case management DVT prophylaxis with SCDs Progress Note: Quality VTE Deep Vein Thrombosis/Pulmonary Embolism Present on Admission: No
[2018-09-27] MEDS: Sodium Chloride 0.9% 2 ML Flush BID IV.FLUSH SCH (20:39)
[2018-09-28] MEDS: Levothyroxine 100 MCG Tablet PO SCH (05:52)
[2018-09-28 07:24] VITALS: PULSE 63; RESP 18; TEMP 97.8
[2018-09-28 07:50] VITALS: O2SAT 86
[2018-09-28] MEDS: Famotidine 20 MG Tablet PO SCH (08:48)
[2018-09-28] MEDS: Aspirin 325 MG Tablet PO SCH (08:48)
[2018-09-28] MEDS: Ezetimibe 10 MG Tablet PO SCH (08:49)
[2018-09-28] MEDS: Metoprolol Tartrate 50 MG Tablet PO SCH (08:49)
[2018-09-28] MEDS: Sodium Chloride 0.9% 2 ML Flush BID IV.FLUSH SCH (08:49)
[2018-09-28] MEDS: amLODIPine 5 MG Tablet PO SCH (08:49)
[2018-09-28] MEDS: Furosemide 40 MG Tablet PO SCH (08:49)
[2018-09-28] MEDS: Senna/Docusate Sodium 8.6/50 MG Tablet PO SCH (10:13)
--- NOTE | 2018-09-28 11:40 | P.DS ---
DS: Providers Date of admission: 09/27/18 16:23 Primary care physician: Victorino Gay MD Consults: 09/26/18 11:15 Consult to Neurology Routine Consulting Provider: Amadeo Cosby Reason for Consultation: AMS Notified:: Service Spoke with:: SUMIT Date Notified:: 09/26/18 Time Notified:: 11:23 Ordering Provider: FABIANA DS: Summary This is a 88 year old female patient with a past medical history which includes HTN, hyperlipidemia, GERD, CKD stage 3 and hypothyroidism. Patient was brought to the ER today after she did not show up to her hair appointment. When her son went to check on her he found her in the driveway on her knees having difficulty getting up. They did not find any madrid on her and when they helped get her up she was not complaining of anything specific. When they went inside they found that she still had water running which is not like her. They state that she has used inhalers intermittently but they do not know that she has any specific lung issues. Patient denies active complaints currently but is a poor historian. Per ER MD pulse oxygen saturation was CXR Mild failure with BNP 425 Hypoxia ?secondary to diastolic CHF exacerbation Chest X-Ray 09/25/[address] 09/25/18 1. No acute intracranial abnormality demonstrated. 2. Chronic white matter changes. Chest CTA 09/25/18 1. No pulmonary embolus. 2. CT findings suggests mild congestive heart failure in the proper clinical setting. Also probably some tricuspid regurgitation. 3. Coronary artery calcification. 4. Upper limits of normal to mildly enlarged mediastinal and hilar lymph nodes are slightly more prominent than in November,. Echocardiogram: Normal left ventricular size. Wall thickness is normal. The left ventricular systolic function is low normal with an estimated ejection fraction in the range of 50-55%. [id number] mitral valve regurgitation. The estimated pulmonary arterial pressure is 33 mmHg. There is mild tricuspid valve regurgitation. Trivial pericardial effusion Lasix 20 mg IV BID -> transition to Lasix 40 mg PO daily BNP in admission 425 -> (09/26) repeat BNP 354 Daughter at bedside report that she has had SOB for years. Has seen out CVA Confusion Patient found by her son with her clothes on backward and had left the water running UA obtained neg protein, neg nitrates, neg leukocyte esterase no culture indicated check ammonia < 10, TSH 4.550, free T4 1.65, B12 > 2000, folate > 20.0, RPR pending Head CT 09/25/18 1. No acute intracranial abnormality demonstrated. 2. Chronic white matter changes. Chest CTA 09/25/18 1. No pulmonary embolus. 2. CT findings suggests mild congestive heart failure in the proper clinical setting. Also probably some tricuspid regurgitation. 3. Coronary artery calcification. 4. Upper limits of normal to mildly enlarged mediastinal and hilar lymph nodes are slightly more prominent than in November,. Carotid Doppler Study Technically limited exam. Unable to adequately assess the right side. No left carotid stenosis. Head MRI 09/26/18 1. Multiple small acute lacunar infarcts involving the right periventricular white matter and extending into the upper portion of the right basal ganglia without hemorrhage or mass effect. 2. Mild to moderate chronic ischemic changes in the periventricular white matter. Neck CTA 09/27/18 1. 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 2. Minimal stenosis at the origin of the left internal carotid. 3. The vertebral circulation is widely patent bilaterally. consult neurology, appreciate input aspirin 325 mg daily LDL 88 add Lipitor 10 mg daily continue home ezetmide HTN Continue patient's home Metoprolol 50 mg PO BID and amlodipine 5 mg PO daily Hyperlipidemia Continue patient's home ezetimibe LDL 88 add Lipitor 10 mg daily continue home ezetmide GERD continue patient's home ranitidine CKD stage 3 monitor renal function Hypothyroidism Continue patient home levothyroxine Consult PT DVT prophylaxis with SCDs Time Spent with Patient Total time spent providing and/or coordinating discharge services: Quality: VTE Deep Vein Thrombosis/Pulmonary Embolism Present on Admission: No Exam Narrative Exam Narrative: GENERAL: This is a well-nourished, well-developed patient, in no apparent distress. CARDIOVASCULAR: Regular rate and rhythm RESPIRATORY: clear through out GASTROINTESTINAL: Abdomen soft, non-tender, nondistended. Normal active bowel sounds MUSCULOSKELETAL: Extremities without clubbing, cyanosis, or edema. NEURO: A&O x 3. moves all four extremities LUE and LUE 4+/5. Able to follow commands and conversationally appropriate. speech slightly slurred DS: Data Impressions Chest X-Ray 09/25/18 11:50 CONCLUSION: Mild failure. Head CT 09/25/18 11:50 CONCLUSION: 1. No acute intracranial abnormality demonstrated. 2. Chronic white matter changes. . Chest CTA 09/25/18 11:51 CONCLUSION: 1. No pulmonary embolus. 2. CT findings suggests mild congestive heart failure in the proper clinical setting. Also probably some tricuspid regurgitation. 3. Coronary artery calcification. 4. Upper limits of normal to mildly enlarged mediastinal and hilar lymph nodes are slightly more prominent than in November,. Carotid Doppler Study 09/26/18 00:00 CONCLUSION: Technically limited exam. Unable to adequately assess the right side. No left carotid stenosis. Head MRI 09/26/18 00:00 CONCLUSION: 1. Multiple small acute lacunar infarcts involving the right periventricular white matter and extending into the upper portion of the right basal ganglia without hemorrhage or mass effect. 2. Mild to moderate chronic ischemic changes in the periventricular white matter. Chest X-Ray 09/26/18 08:00 CONCLUSION: Mild interstitial prominence is now seen. Neck CTA 09/27/18 00:00 CONCLUSION: 1. 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 2. Minimal stenosis at the origin of the left internal carotid. 3. The vertebral circulation is widely patent bilaterally. Discharge Plan Discharge Disposition Patient Disposition: [facility] Inpatient Discharge Condition Condition: Stable Discharge Order Discharge Orders: Discharge Order (Routine); Ordered 09/28/18 Ordered By: Roz Prince Discharge Details Anticipated Discharge Date: 09/28/18 Physicians Team ED Provider: Tawnya Jefferson Primary Care Provider: Victorino Gay Attending Provider: Jose Villalta Other Providers: Amadeo Cosby Rxs /Orders / Referrals /Forms Prescriptions: New aspirin 325 mg Tablet 325 mg PO DAILY 30 Days Qty: 30 RF: 0 atorvastatin [Lipitor] 10 mg tablet 10 mg PO DAILY Qty: 30 RF: 0 furosemide 40 mg Tablet 40 mg PO DAILY 30 Days Qty: 30 RF: 0 Continue amlodipine 5 mg Tablet 5 mg PO DAILY RF: 0 ranitidine HCl 150 mg Capsule 150 mg PO DAILY RF: 0 oxybutynin chloride 5 mg Tablet 5 mg PO DAILY RF: 0 losartan 100 mg Tablet 100 mg PO DAILY RF: 0 ezetimibe 10 mg Tablet 10 mg PO DAILY RF: 0 levothyroxine 100 mcg Capsule 100 mcg PO DAILY RF: 0 metoprolol tartrate 50 mg Tablet 50 mg PO BID RF: 0 Discontinued furosemide 20 mg Tablet 20 mg PO DAILY RF: 0 Referrals: Amadeo Cosby MD, PhD [Physician] - See Instructions (follow up in 1-2 weeks) Victorino Gay MD [Primary Care Provider] - See Instructions (follow up in 1 week) Pop Thomas DO [Physician] - See Instructions ([facility] cardiology 21 day event monitor. Resent CVA) Discharge Instructions Patient Printed Instructions: Hypoxia (GEN) Status ED Status: Left Department
[2018-09-28 11:47] VITALS: BP 136/62
--- NOTE | 2018-09-28 11:57 | OTSOAPIP ---
RECEIVED OCCUPATIONAL THERAPY CONSULT. UPON ARRIVAL, PATIENT WAS RESTING IN BED WITH DAUGHTER PRESENT IN ROOM. PER RN AND FAMILYS REPORT, PATIENT RECEIVED AUTHORIZATION FROM INSURANCE COMPANY TO DISCHARGE TO [place] [facility] THIS DATE. VERIFIED THIS INFORMATION AND THAT AN OCCUPATIONAL THERAPY EVALUATION WAS NOT NEEDED IN ORDER TO LEAVE WITH [employer]ILDER ASSEMBLER, PRERNA. PATIENTS FAMILY PREFERS NOT TO HAVE THE PATIENT COMPLETE DUPLICATE OT EVALUATIONS IF IT IS NOT REQUIRED TO DISCHARGE SINCE IT IS KNOWN SHE WILL BE EVALUATED BY OT UPON ADMISSION TO [place], THEREFORE NO OCCUPATIONAL THERAPY EVALUATION WAS COMPLETED. INTERDISCIPLINARY COMMUNICATION: REVIEWED ELECTRONIC MEDICAL RECORD, SPOKE WITH RN AND MOTOR BUILDER ASSEMBLER Therapist: Meryl Dooley OTR/L Signature on file
== END 2018-09-28 12:55 ==
LOC: NEDA 11:34 → NEPC 11:34 → NEPGCP 17:56
PROVIDERS: ADMIT Hospitalist; ATTEND Hospitalist